=== PATIENT | female | born 1940 | race Caucasian/White ===

== ENCOUNTER 2022-01-26 13:03 | Emergency (ER) | payer MEDICARE ==
[~2022-01-26] VITALS: Ht 157.5 cm; Wt 63.5 kg
--- NOTE | 2022-01-26 14:02 | NUR ---
Wrapped pt's right foot with elastic bandage, PMS intact, cap refill<3sec.
--- NOTE | 2022-01-26 14:15 | NUR ---
Patient ED progress discussed with physician with . Orthopedic shoe provided for stability. Educated on precautions and home safety.
[2022-01-26 15:05] VITALS: BP 92/60
== END 2022-01-26 14:35 | disposition home or self-care (01) ==
LOC: ER 13:03
DX: S92.351A Displaced fracture of fifth metatarsal bone, right foot, initial encounter for closed fracture (principal); W23.0XXA Caught, crushed, jammed, or pinched between moving objects, initial encounter; Y92.89 Other specified places as the place of occurrence of the external cause; E78.5 Hyperlipidemia, unspecified; E11.9 Type 2 diabetes mellitus without complications
CPT/HCPCS: 73630; A4663

== ENCOUNTER 2022-07-16 13:53 | Emergency (ER) | payer MEDICARE ==
[~2022-07-16] VITALS: Ht 157.5 cm; Wt 63.5 kg
--- NOTE | 2022-07-16 14:30 | NUR ---
Pt ambulatory to room 1B, placed in hospital gown for MSE. Pt c/o pain to bilat ribs and left shoulder post mech fall. at bedside.
[2022-07-16] MEDS ORDERED: LIDOCAINE 5% PATCH TD ONE ×3 (15:15→18:08)
[2022-07-16 15:41] LABS: HEMATOCRIT 39.4 % (31.2-41.9); MEAN CORPUSCULAR HEMOGLOBIN 30.2 uug (24.7-32.8); MEAN CORPUSCULAR VOLUME 92.1 fL (75.5-95.3); PLATELET COUNT (AUTO) 311 K/uL (179-408)
[2022-07-16 15:47] LABS: BILIRUBIN,TOTAL 0.3 mg/dL (0.2-1.0); CREATININE 0.8 mg/dL (0.6-1.3); POTASSIUM 4.2 mmol/L (3.5-5.1); TOTAL PROTEIN, SERUM 6.8 g/dL (6.4-8.2)
--- NOTE | 2022-07-16 16:10 | NUR ---
Cat kaur in ED - 07/16/22 at 1616 by BHUMIKA Saline Lock started to RAC by ER physician, Amiodarone drip restarted.
[2022-07-16] MEDS ORDERED: IOHEXOL 300MG/ML 100 ML INFUS..BTL ONE (16:28)
[2022-07-16] MEDS ORDERED: SWABABLE VALVE TRANSFER SET EA MC ONE (16:28)
[2022-07-16] MEDS ORDERED: IV NORMAL SALINE 250 ML IV ONE (16:28)
[2022-07-16] MEDS ORDERED: LIDO30AD10 TP (18:09)
[2022-07-16] MEDS ORDERED: NAPR-1192 PO (18:09)
--- NOTE | 2022-07-16 18:47 | NUR ---
Patient discharged to home in stable condition. Written and verbal after care instructions given. Patient verbalizes understanding of instructions. Stressed follow up or return to ER for worsening s/s.
== END 2022-07-16 18:48 | disposition home or self-care (01) ==
LOC: ER 13:53
DX: S22.42XA Multiple fractures of ribs, left side, initial encounter for closed fracture (principal); R10.12 Left upper quadrant pain; W01.0XXA Fall on same level from slipping, tripping and stumbling without subsequent striking against object, initial encounter; Y92.89 Other specified places as the place of occurrence of the external cause; Z85.528 Personal history of other malignant neoplasm of kidney; Z90.5 Acquired absence of kidney; E11.9 Type 2 diabetes mellitus without complications; E78.5 Hyperlipidemia, unspecified; M25.512 Pain in left shoulder; S49.92XA Unspecified injury of left shoulder and upper arm, initial encounter
CPT/HCPCS: 99285; 70450; 80053; 85025; 84484; 36415; 93005 ×2; 71101; 73030; 73060; 71250; 74177; Q9967; A4663